=== PATIENT | female | born 1980 | race Hispanic/Latino ===

== ENCOUNTER 2023-02-16 08:41 | Outpatient (CLI) | payer BC | END 2023-02-16 08:42 | disposition home or self-care (01) | LOC: DTY/OP 08:41 | PROVIDERS: ATTEND Surgery | DX: E66.01 Morbid (severe) obesity due to excess calories (principal) | CPT/HCPCS: 97802 ==

== ENCOUNTER 2023-04-26 09:00 | Inpatient (IN) | payer BC ==
[2023-04-26 09:20] VITALS: BMI 49.9
[2023-05-03] MEDS ORDERED: Lidocaine 1% MPF 2 ML VIAL ONE (06:23)
[2023-05-03] MEDS ORDERED: CEFAZOLIN 2 GM VIAL ONE (06:24)
[2023-05-03] MEDS ORDERED: Heparin 5,000 UNITS/ML VIAL ONE (06:24)
[2023-05-03] MEDS ORDERED: Sodium Chloride 0.9% 100 ML ONE (06:24)
[2023-05-03] MEDS ORDERED: EPINEPHrine 1 MG/ML AMP ONE (06:39)
[2023-05-03] MEDS ORDERED: Bupivacaine 0.25% HCL 30 ML VIAL ONE (06:39)
[2023-05-03] MEDS ORDERED: fentaNYL PF 100 MCG/2 ML SYRINGE ONE (06:50)
[2023-05-03] MEDS ORDERED: Scopolamine 1.5 mg/72 hour Patch ONE (07:08)
[2023-05-03] MEDS ORDERED: Dexamethasone 20 MG/5 ML VIAL ONE (07:42)
[2023-05-03] MEDS ORDERED: Rocuronium Bromide 10 MG/ML (10ML VIAL) ONE (07:42)
[2023-05-03] MEDS ORDERED: NEOSTIGMINE 3 MG/3 ML SYR 3 MG/3 ML SYRINGE ONE (07:42)
[2023-05-03] MEDS ORDERED: Lidocaine 1% PF 5 ML VIAL ONE (07:42)
[2023-05-03] MEDS ORDERED: Ondansetron PF 4 MG/2 ML Vial ONE (07:42)
[2023-05-03] MEDS ORDERED: PROPOFOL 200 MG/20 ML VIAL ONE (07:42)
[2023-05-03] MEDS ORDERED: Glycopyrrolate 0.2 MG/ML 5 ML SYRINGE ONE (07:42)
[2023-05-03] MEDS ORDERED: PHENYLEPHRINE-NS 100 MCG/ML 10 ML SYRINGE ONE (07:42)
[2023-05-03] MEDS ORDERED: Naloxone HCl 0.4 mg/ml Vial IV PRN (09:18)
[2023-05-03] MEDS ORDERED: FENTANYL 500 MCG/10 ML VIAL 2,000 MCG in Sodium Chloride 0.9% 60 ML IV PRN (09:18)
[2023-05-03] MEDS ORDERED: diphenhydrAMINE 25 MG CAP PO PRN (09:18)
[2023-05-03] MEDS ORDERED: diphenhydrAMINE 50 MG/ML VIAL IM PRN (09:18)
[2023-05-03] MEDS ORDERED: Zolpidem Tartrate 5 MG TAB PO PRN (09:18)
[2023-05-03] MEDS ORDERED: Promethazine HCl 25 MG/ML VIAL IM PRN ×3 (09:18→09:25)
[2023-05-03] MEDS ORDERED: Ondansetron HCl/PF 4 MG/2 ML Vial IVP PRN (09:18)
[2023-05-03] MEDS ORDERED: Ondansetron PF 4 MG/2 ML Vial IVP PRN ×2 (09:18→09:25)
[2023-05-03] MEDS ORDERED: diphenhydrAMINE 50 MG/ML VIAL IVP PRN ×2 (09:18→09:25)
[2023-05-03] MEDS ORDERED: Dextrose 50% Abboject 50 ML SYRINGE SLOW IVP PRN (09:25)
[2023-05-03] MEDS ORDERED: Glucagon 1 MG/ML KIT IM PRN (09:25)
[2023-05-03] MEDS ORDERED: Dextrose 5% in Water 1,000 ML IV PRN (09:25)
[2023-05-03] MEDS ORDERED: Hydrocodone-Acetamin 15 ML UDCUP PO PRN (09:25)
[2023-05-03] MEDS ORDERED: Ipratropium/Albuterol 3 ML NEB NEB PRN (09:25)
[2023-05-03] MEDS ORDERED: hydrALAZINE 20 MG/ML VIAL SLOW IVP PRN (09:25)
[2023-05-03] MEDS ORDERED: ACTIVE PCA FS PRN (09:30)
[2023-05-03] MEDS ORDERED: Pantoprazole 40 MG VIAL IVP SCH (09:45)
[2023-05-03] MEDS ORDERED: Levothyroxine Sodium 50 MCG TAB PO SCH (09:45)
[2023-05-03] MEDS: D5 1/2 NS w/20 mEq KCL 1,000 ML IV SCH ×3 (10:32→20:07)
[2023-05-03] MEDS ORDERED: D5 1/2 NS w/20 mEq KCL 1,000 ML ONE (11:06)
[2023-05-04 05:16] LABS: #Monocytes 1.3 thou/uL (0.11-0.59); #Neutrophils 15.3 thou/uL (1.40-6.50); %Basophils 0.1 % (0.0-1.0); %Eosinophils 0.1 % (0.0-10.0); %Lymphocytes 8.4 % (21.0-51.0); %Monocytes 7.3 % (0.0-10.0); %Neutrophils 83.7 % (42.0-75.0); Mean Corpuscular HGB CONC 29.2 g/dL (32.0-36.0); Mean Corpuscular Hemoglobin 19.9 pg (27.0-31.0); Mean Corpuscular Volume 68.1 fl (78.0-98.0); Platelet Count 207 10x3/uL (130-400); RBC Distribution Width 19.7 % (11.5-14.5); Red Blood Cell (RBC) Count 5.02 mill/uL (4.20-5.40); White Blood Cell (WBC) Count 18.3 10x3/uL (4.8-10.8)
[2023-05-04 05:37] LABS: Anion Gap 12 mmol/L (10-20); BUN (Urea Nitrogen) 9 mg/dL (7.0-18.7); Calc. Creatinine Clearance 206 mL/min (70-130); Calcium 9.1 mg/dL (7.8-10.44); Carbon Dioxide 20 mmol/L (22-29); Chloride 105 mmol/L (98-107); Estimated GFR 98; Glucose 138 mg/dL (70-105); Sodium 133 mmol/L (136-145)
[2023-05-04] MEDS ORDERED: Levothyroxine Sodium 50 MCG TAB PO SCH (06:00)
[2023-05-04 06:11] LABS: Delete Auto Diff?? NO
[2023-05-04] MEDS ORDERED: Vilazodone Hcl [Viibryd] 40 MG Tablet PO SCH (09:00)
[2023-05-04] MEDS ORDERED: Pantoprazole 40 MG VIAL IVP SCH (09:00)
[2023-05-04] MEDS: D5 1/2 NS w/20 mEq KCL 1,000 ML IV SCH (09:04)
[2023-05-04 09:11] LABS: Polychromasia SLIGHT = 2-3 cells (100X) (0-2/hpf)
[2023-05-04 09:12] LABS: Ovalocytes SLIGHT = 2-5 cells (100X) (0-1/hpf); Platelet Adequacy Comment Platelets Normal
[2023-05-04 09:14] LABS: Microcytosis MODERATE=15-30 cells (100X) (0-5/hpf)
[2023-05-04 11:32] VITALS: BP 134/85; TEMP 98.5
== END 2023-05-04 14:38 | disposition home or self-care (01) | DRG 621 ==
LOC: SURG A 05-03 06:10
PROVIDERS: ADMIT Surgery; ATTEND Surgery
PROC: 0DB64Z3 Excision of Stomach, Percutaneous Endoscopic Approach, Vertical (ICD-10-PCS; principal; 2023-05-03)
PROC: 8E0W4CZ Robotic Assisted Procedure of Trunk Region, Percutaneous Endoscopic Approach (ICD-10-PCS; 2023-05-03)
PROC: 3E033XZ Introduction of Vasopressor into Peripheral Vein, Percutaneous Approach (ICD-10-PCS; 2023-05-03)
DX: E66.01 Morbid (severe) obesity due to excess calories (principal); Z68.42 Body mass index [BMI] 45.0-49.9, adult; Z79.890 Hormone replacement therapy
CPT/HCPCS: 36415; 80048; 85025; 88307; C9113; J0171; J1100; J1644; J1650; J2405; J2704; J3480; J3490; S0020